=== PATIENT | male | born 1955 | race Caucasian/White ===

== ENCOUNTER 2019-06-16 17:41 | Emergency (ER) | payer MEDICARE, OTHER ==
[2019-06-16] MEDS: TETRACAINE 0.5% 4 ML OPH RIGHT EYE (22:26)
[2019-06-16] MEDS: FLUORESCEIN STRIP RIGHT EYE (22:26)
== END 2019-06-16 22:31 | disposition home or self-care (01) ==
LOC: FTE 17:41
DX: S05.01XA Injury of conjunctiva and corneal abrasion without foreign body, right eye, initial encounter (principal); E11.9 Type 2 diabetes mellitus without complications; I10 Essential (primary) hypertension; W20.8XXA Other cause of strike by thrown, projected or falling object, initial encounter; Y92.9 Unspecified place or not applicable; Z79.82 Long term (current) use of aspirin; Z79.84 Long term (current) use of oral hypoglycemic drugs
CPT/HCPCS: 76536; 99284-25